=== PATIENT | female | born 1965 | race Native Hawaiian/Other Pacific Islander ===

== ENCOUNTER 2019-05-16 11:31 | Outpatient (CLI) | payer BC | END 2019-05-16 22:40 | disposition home or self-care (01) | LOC: LAB 11:31 | DX: R05 Cough (principal) | CPT/HCPCS: 87070; 87205 ==

== ENCOUNTER 2020-07-26 14:05 | Outpatient (CLI) | payer BC, OTHER | END 2020-07-26 16:00 | disposition home or self-care (01) | LOC: INF 14:05 | PROVIDERS: ATTEND Internal Medicine | DX: Z23 Encounter for immunization (principal) | CPT/HCPCS: 96372 ==

== ENCOUNTER 2020-08-19 13:10 | Outpatient (CLI) | payer BC, OTHER | END 2020-08-19 23:59 | disposition home or self-care (01) | LOC: INF 13:10 | PROVIDERS: ATTEND Internal Medicine | DX: Z23 Encounter for immunization (principal) | CPT/HCPCS: 96372 ==

== ENCOUNTER 2022-09-12 08:01 | Outpatient (CLI) | payer BC | END 2022-09-12 18:55 | disposition home or self-care (01) | LOC: RESP 08:01 | PROVIDERS: ATTEND Internal Medicine | DX: Z01.818 Encounter for other preprocedural examination (principal) | CPT/HCPCS: 93005 ==

== ENCOUNTER 2022-09-22 07:53 | Outpatient (CLI) | payer BC | END 2022-09-22 19:18 | disposition home or self-care (01) | LOC: US 07:53 | PROVIDERS: ATTEND Internal Medicine | DX: R94.5 Abnormal results of liver function studies (principal) ==